=== PATIENT | male | born 1980 | race Caucasian/White ===

== ENCOUNTER 2017-02-09 19:17 | Inpatient (IN) | payer OTHER ==
[~2017-02-09] VITALS: Ht 190.5 cm; Wt 127.0 kg
[2017-02-09 21:30] VITALS: BP_SYST 137; BP_DIAS 37; BP_DIAS 87; PULSE 95; TEMP 36.6; O2SAT 96; Ht 190.5 cm; Wt 127.0 kg
[2017-02-09] MEDS ORDERED: HYDR25TA4 PO (22:16)
[2017-02-09] MEDS ORDERED: HYDR12.55 PO (22:16)
[2017-02-09] MEDS ORDERED: ENOXAPARIN 40 MG/0.4 ML SYR SC SCH (23:00)
[2017-02-09] MEDS ORDERED: FUROSEMIDE INJ 60 MG in SYRINGE 0 ML IV ONE (23:30)
--- NOTE | 2017-02-09 23:41 | History and Physical ---
History & Physical Date & Time of Service: Feb 09, 2017 at 23:16 Chief Complaint: Poss. Endocarditis Primary Care Physician: No Doctor, Assigned History of Present Illness Source: patient 36 year old male was a direct admit from [facility] [place] with chest pain and shortness of breath. He presented to their hospital with chest pain and shortness of breath. His chest pain started in the morning when he woke up. He described it as a central , crushing chest pain that is made worse with deep inspiration, but is not worse with exertion and does not radiate. Morphine helped with the pain. Before it was a 9/10 but now he rates it as a 4/10. Associated symptoms include shortness of breath (chronic since May but worse recently, worse when laying flat and when exerting himself), palpitations , and morning cough with clear sputum. Of note he has also lost 150-200 pounds over the last 9-10 months which has been unintentional. At [facility] on [facility] he was found to have moderate bilateral pleural effusions as well as a LLL infiltrate. His troponin was .064 and his EKG showed NSR. He received Ativan, lopressor, vanc, levaquin and lorazepam at the outside ED. His tox screen at the outside hospital was positive for THC (admits to smoking pot), Oxycodone (admits to taking one yesterday) and cocaine (patient denies any cocaine use). He was afebrile and without a WCC at the outside hospital. 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)) Allergies Coded Allergies: Penicillins (Verified Allergy, Severe, ANAPHYLAXIS, 02/09/17) Home Medications Scheduled Hydrochlorothiazide (Hydrochlorothiazide), 1 TAB PO DAILY Hydrochlorothiazide (Hctz), 1 TAB PO DAILY Review of Systems Constitutional: + weight loss, No fever, No chills, No sweats ENT: No nasal symptoms, No sore throat Respiratory: + cough, + sputum (clear), + shortness of breath, + dyspnea on exertion, + dyspnea at rest, No hemoptysis Cardiovascular: + chest pain, + palpitations Abdomen: No pain, No nausea, No vomiting, No diarrhea Musculoskeletal: + joint pain (left knee), No muscle pain, No swelling, No calf pain Genitourinary - Male: No hematuria, No dysuria Neurologic: No paralysis, No weakness, No numbness/tingling Psychiatric: + substance abuse, No anxiety Hematologic / Lymphatic: No abnormal bleeding/bruising, No clotting problems Integumentary: No rash, No itch, No new/changing skin lesions Physical Exam Vital Signs Date Time Temp Pulse Resp B/P (MAP) Pulse Ox O2 Delivery O2 Flow Rate FiO2 02/09/17 21:30 36.6 95 32 137/37 96 Mask 3.0 General Appearance: WD/WN, no apparent distress, + obese, + pertinent finding ( oxy mask on) Head: normocephalic, atraumatic Eyes: PERRL, EOMI, funduscopic exam normal ENT: hearing grossly normal, pharynx normal Neck: supple, no carotid bruits, trachea midline, + pertinent finding (unable to assess JVD due to obesity) Respiratory/Chest: chest non-tender, no respiratory distress, no accessory muscle use, + crackles (crackles at the bases bilaterally) Cardiovascular: regular rate, rhythm, no edema, no murmur, normal peripheral pulses Abdomen/GI: normal bowel sounds, non tender, soft Extremities/Musculoskelatal: no calf tenderness, no pedal edema, normal range of motion, non-tender Neurologic/Psych: alert, normal mood/affect, oriented x 3 Skin: + pertinent finding (tattoos throughout his body) Impression Assessment and Plan 36 year old male as a direct admit from [facility] who presented with chest pain and shortness of breath and was found to have bilateral pleural effusions with a LLL infiltrate on imaging. Differential for this patient includes myocarditis, pericarditis, cardiomyopathy , KRISTI, endocarditis, valvular abnormality, MA, Pneumonia Shortness of breath/Chest pain - Ct scan showed moderate bilateral pleural effusions w/ LLL infiltrate and without PE - Patient on 3L oxy mask - Will give 60 IV lasix and reassess with CXR in AM - Initial EKG at outside hospital in NSR - Troponin at outside hospital .064, will repeat this evening and another one in 8 hours - Order Echo for the morning and order EKG for the morning - Strict I/O's - Cardiology consult - Patient afebrile and without wcc at outside hospital therefore will hold off on giving antibiotics - Morphine 2mg q2 prn chest pain Unintentional Weight loss - 150-200 pounds over 9 months. - TSH ordered, HbA1c ordered - Possible malignancy workup? HTN - continue HCTZ - follow bmp DVT prophylaxis - lovenox FULL CODE Resident Physician Supervision Note: I was present with Dr. Jacobo during the history and exam. I discussed the case with the resident and agree with the findings and plan as documented in the note. Any exceptions or clarifications are listed here: 36 y/o M Hx IVDU > 5 yrs ago , recreational cocaine use, smoker, obesity. Has had SOB for a few months then developed acute worsening and CP earlier today - presented to [facility] where he was transferred to [facility]. Initial imaging and exam is consistent with CHF - troponin has been WNL. CT is negative for PEs. OE AAO x 3 - labored breathing is apparent S1,2 R Reduced air entry at bases NT, ND No CCE P: Pt will be diuresed and we will repeat imaging AM - if effusions do not decrease would merit tap Echo and cardio consult are pending Serial trops ordered Reg weight loss - states that loss is not intentional however he also states that he has had no appetite for past 6 several months - 200 lbs is excessive and wowuld need further workup following workup of acute issues Discussed drug use and smoking cessation - states he has not used Cocaine in 6 months although this is unlikely as his UDS is + Documented By: Kristopher Myers Level of Care Telemetry Advanced Directives Existing Living Will: No Existing Power of Adjunct Faculty Instructor: No Resuscitation Status FULL RESUSCITATION VTE Prophylaxis VTE Risk Assessment Done? Y/N: Yes Risk Level: Moderate Given or contraindicated: Enoxaparin (Lovenox)SQ
[2017-02-10] VITALS (8 sets, daily range): BP systolic 101–174; BP diastolic 65–123; PULSE 80–96; TEMP 36.4–36.8; O2SAT 94–98
[2017-02-10] MEDS ORDERED: PNEUMOCOCCAL ADMINISTRATION CHARGE ONE (00:30)
[2017-02-10] MEDS ORDERED: PNEUMOCOCCAL POLYSACCHARIDES 25 MCG/0.5 ML VIAL/SYR IM. ONE (00:30)
[2017-02-10] MEDS: MoRPHine SULFATE 2 MG/ML CARP IV PRN ×2 (02:11→08:35)
[2017-02-10 05:55] LABS: BASO % 0.5 %; BASO ABS # 0.05 K/uL (0-0.2); COMPLETE YES; EOS % 1.3 %; HEMATOCRIT 50.7 % (42-52); IG% 0.2 %; LYMPH ABS # 1.58 K/uL (1.2-3.4); MEAN CELL VOLUME 90.4 fL (80-100); MEAN CORPUSCULAR HEMOGLOBIN 29.8 pg (25-34); MEAN CORPUSCULAR HGB CONC 32.9 g/dl (32-36); MEAN PLATELET VOLUME 10.5 fL (7.4-10.4); MONO % 8.6 %; NEUT % 73.4 %; PLATELET COUNT 229 K/uL (130-400); RED BLOOD COUNT 5.61 M/uL (4.7-6.1); WHITE BLOOD COUNT 9.89 K/uL (4.8-10.8)
[2017-02-10 06:08] LABS: INR 1.1 (0.9-1.1); PARTIAL THROMBOPLASTIN RATIO 1.1; PROTHROMBIN TIME (PATIENT) 12.3 SECONDS (9.0-12.0)
[2017-02-10 06:25] LABS: CALCIUM 8.9 mg/dl (8.5-10.1); CREATININE 1.2 mg/dl (0.60-1.40); POTASSIUM 4.8 mmol/L (3.5-5.1)
[2017-02-10 06:26] LABS: BUN/CREATININE RATIO 16.3 (10-20); CALCIUM 8.6 mg/dl (8.5-10.1); POTASSIUM 4.8 mmol/L (3.5-5.1)
[2017-02-10 06:36] LABS: ALB/GLOB RATIO 0.7 (0.9-2); CHOLESTEROL/HDL RATIO 3.2; THYROID STIMULATING HORMONE 1.16 uIu/ml (0.300-4.500)
[2017-02-10 07:12] LABS: ESTIMATED AVERAGE GLUCOSE 137 mg/dl; HA1C FLAG Normal (Normal)
--- NOTE | 2017-02-10 08:46 | Family Medicine Progress Note ---
Progress Note Date of Service Feb 10, 2017. Subjective Pt evaluation today including: conversation w/ patient SEE DISCHARGE NOTE Objective Vital Signs Date Time Temp Pulse Resp B/P (MAP) Pulse Ox O2 Delivery O2 Flow Rate FiO2 02/10/17 08:19 36.8 96 18 139/68 (91) 98 02/10/17 04:29 36.4 95 24 125/84 (98) 98 Oxymask 3.0 02/10/17 04:00 Oxymask 3.0 02/10/17 01:15 92 28 121/84 (96) 98 Oxymask 3.0 02/10/17 00:00 96 Oxymask 3.0 02/10/17 00:00 36.8 92 21 174/123 (140) 96 Nasal Cannula 3.0 Oxymask 02/09/17 21:30 36.6 95 32 137/87 96 Mask 3.0 Resident Tracking Resident Involvement: Resident Care Provided Care Provided: Adult Hospital Medicine History Resident Physician Supervision Note: I was present with Dr. Marcus during the history and exam. I discussed the case with the resident and agree with the findings and plan as documented in the note. Any exceptions or clarifications are listed here. Pt seen and examined at bedside. Persistent shortness of breath at rest worse with lying flat or exertion. Some nonproductive cough improved from foamy white previous. Significant increase in UOP on diuretics. reports no fever, sweats, sensory changes, KIRAN, chest pain. General Appearance: mild distress, obese Respiratory: chest non-tender, decreased breath sounds, rales (b/l LL) Cardiovascular: normal peripheral pulses, regular rate, rhythm, no murmur, other (2+ pitting edema b/l LE) Assessment/Plan 36 y/o male h/o NICM, cocaine abuse, CHF (systolic) p/w worsening SOB CHF exacerbation - echocardiogram shows considerable EF drop - metoprolol, lasix BID. Will add ARIE-I soon. Significant weight loss - unknown connection to cardiac deficits - SPEP, UPEP, hepatitis profile, HIV Cocaine use - counseled briefly re: avoidance of substance use, as has polysubstance abuse hx including etOH and marijuana Shortly after rounds today, the patient stated he was going to leave the hospital, citing that he had to check on his house and dog, and that his S/O was coming to get him. He held to this plan despite counseling from the entire medical team including myself. He has good understanding of the consequences that may await him if he leaves, including worsening SOB, syncope and sudden cardiac . He is going to leave in any case. He says that he will present to [place] ED as soon as he completes the tasks that he wishes to complete.
[2017-02-10] MEDS ORDERED: FUROSEMIDE INJ 20 MG in SYRINGE 0 ML IV SCH (09:00)
[2017-02-10] MEDS ORDERED: POTASSIUM CHLORIDE 10 MEQ TABCR PO SCH (09:00)
[2017-02-10] MEDS ORDERED: HYDROCHLOROTHIAZIDE 25 MG TAB PO SCH (09:00)
--- NOTE | 2017-02-10 09:23 | DIAGNOSTIC IMAGING REPORT ---
CHEST 2 VIEWS ROUTINE CLINICAL HISTORY: Shortness of breath COMPARISON STUDY: Outside chest x-ray dated 02/09/2017 FINDINGS: The heart remains enlarged. There are bilateral pleural effusions with bibasal airspace opacities likely atelectatic. Elevation interstitium, likely is secondary to mild pulmonary edema. IMPRESSION: Persistent cardiomegaly, pulmonary vascular congestion, bilateral pleural effusions, and bibasal atelectasis. Electronically signed by: Zelalem Herrera M.D. 02/10/2017 9:22 AM Dictated Date/Time: 02/10/2017 9:20 AM
--- NOTE | 2017-02-10 09:52 | ECHOCARDIOGRAM REPORT ---
*NOTICE TO RECEIVING DEMOCRAT AGENCY This information is strictly Confidential and protected under [place] law. [place] law prohibits you from making any further disclosure of this information unless further disclosure is expressly permitted by the written consent of the person to whom it pertains or is authorized by law. A general authorization for the release of medical or other information is not sufficient for this purpose. Hospital accepts no responsibility if the information is made available to any other person, INCLUDING THE PATIENT. Interpretation Summary * Name: BOB MORENO Study Date: 02/10/2017 06:31 AM BP: 125/84 mmHg * Patient Location: C.2T\S\S240\S\1 HR: 95 * : 1980 (M/d/yyyy) Gender: Male Height: 75 in * Age: 36 yrs Ethnicity: AL Weight: 277 lb * Ordering Physician: Max Zapata * Referring Physician: No Doctor, Assigned * Performed By: Adalid Donahue RCS * * Reason For Study: CHF * BSA: 2.5 m2 * -- Conclusions -- * The left ventricle is moderately dilated. LVEDVI for BSA 87 cc * There is normal left ventricular wall thickness. * Left ventricular systolic function is severely reduced. * Ejection Fraction = 20-25%. * There is severe global hypokinesis of the left ventricle. * LV stroke volume 50 cc. * Dilated RV with reduced RV function. * The left atrium is severely dilated. * Mild aortic regurgitation. * There is mild to moderate mitral regurgitation. * PA pressure 50 mm/hg * Small pericardial effusion. * Moderate size left pleural effusion * . * Diastolic dysfunction, Grade III (restrictive pattern), consistent with markedly increased left atrial pressure. * There is moderate tricuspid regurgitation. * No obvious vegetations visualized. Procedure Details * A complete two-dimensional transthoracic echocardiogram was performed (2D, M-mode, Doppler and color flow Doppler). Left Ventricle * The left ventricle is moderately dilated. * There is normal left ventricular wall thickness. * Ejection Fraction = 20-25%. * Left ventricular systolic function is severely reduced. * There is severe global hypokinesis of the left ventricle. * LV stroke volume 50 cc. Right Ventricle * Dilated RV with reduced RV function. Atria * The left atrium is severely dilated. * The right atrium is moderately dilated. Mitral Valve * The mitral valve is grossly normal. * There is mild to moderate mitral regurgitation. Tricuspid Valve * The tricuspid valve is not well visualized, but is grossly normal. * There is moderate tricuspid regurgitation. * PA pressure 50 mm/hg Aortic Valve * The aortic valve is trileaflet. * Mild aortic regurgitation. Pulmonic Valve * The pulmonic valve is not well seen, but is grossly normal. * Mild pulmonic valvular regurgitation. Great Vessels * The aortic root is normal size. Pericardium/Pleural * Small pericardial effusion. * Moderate size left pleural effusion. Great Vessels * Dilated inferior vena cava with reduced collapsability with sniff indicates an elevated right atrial pressure of 15 mmHg Left Ventricular Diastolic Function * Diastolic dysfunction, Grade III (restrictive pattern), consistent with markedly increased left atrial pressure. MMode 2D Measurements and Calculations IVSd 1.1 cm IVSs 1.5 cm LVIDd 6.1 cm LVIDs 5.2 cm LVPWd 1.1 cm LVPWs 1.5 cm IVS/LVPW 1.0 FS 14.3 % EDV(Teich) 184.7 ml ESV(Teich) 129.6 ml EF(Teich) 29.8 % EDV(cubed) 223.4 ml ESV(cubed) 140.8 ml EF(cubed) 37.0 % % IVS thick 33.4 % % LVPW thick 37.9 % LV mass(C)d 283.1 grams LV mass(C)dI 112.3 grams/m\S\2 LV mass(C)s 337.3 grams LV mass(C)sI 133.8 grams/m\S\2 SV(Teich) 55.1 ml SI(Teich) 21.8 ml/m\S\2 SV(cubed) 82.6 ml SI(cubed) 32.8 ml/m\S\2 Ao root diam 3.8 cm Ao root area 11.1 cm\S\2 ACS 2.1 cm LA dimension 5.5 cm asc Aorta Diam 3.9 cm LA/Ao 1.5 LVAd ap4 57.1 cm\S\2 LVLd ap4 10.9 cm EDV(MOD-sp4) 241.3 ml EDV(sp4-el) 254.1 ml LVAs ap4 50.4 cm\S\2 LVLs ap4 10.2 cm ESV(MOD-sp4) 205.9 ml ESV(sp4-el) 210.6 ml EF(MOD-sp4) 14.7 % EF(sp4-el) 17.1 % LVAd ap2 71.7 cm\S\2 LVLd ap2 11.3 cm EDV(MOD-sp2) 372.9 ml EDV(sp2-el) 387.1 ml LVAs ap2 59.0 cm\S\2 LVLs ap2 10.2 cm ESV(MOD-sp2) 279.9 ml ESV(sp2-el) 290.7 ml EF(MOD-sp2) 24.9 % EF(sp2-el) 24.9 % LVLd %diff 3.4 % EDV(MOD-bp) 299.5 ml LVLs %diff -0.77 % ESV(MOD-bp) 242.2 ml EF(MOD-bp) 19.1 % SV(MOD-sp4) 35.4 ml SI(MOD-sp4) 14.1 ml/m\S\2 SV(MOD-sp2) 93.0 ml SI(MOD-sp2) 36.9 ml/m\S\2 SV(MOD-bp) 57.3 ml SI(MOD-bp) 22.7 ml/m\S\2 SV(sp4-el) 43.5 ml SI(sp4-el) 17.3 ml/m\S\2 SV(sp2-el) 96.4 ml SI(sp2-el) 38.3 ml/m\S\2 Doppler Measurements and Calculations MV E max gordo 89.7 cm/sec MV A max gordo 43.6 cm/sec MV E/A 2.1 MV P1/2t max gordo 97.5 cm/sec MV P1/2t 68.1 msec MVA(P1/2t) 3.2 cm\S\2 MV dec slope 419.3 cm/sec\S\2 MV dec time 0.15 sec Ao V2 max 79.8 cm/sec Ao max PG 2.5 mmHg Ao max PG (full) 1.3 mmHg AI max gordo 374.0 cm/sec AI max PG 56.0 mmHg AI dec slope 111.8 cm/sec\S\2 AI P1/2t 979.7 msec LV V1 max PG 1.2 mmHg LV V1 max 55.6 cm/sec PA V2 max 65.0 cm/sec PA max PG 1.7 mmHg TR max gordo 285.8 cm/sec
--- NOTE | 2017-02-10 11:23 | CARDIOLOGY CONSULTATION ---
DATE OF CONSULTATION: 02/10/2017 DATE OF CONSULTATION: 02/10/2017 REQUESTING: Dr. Max Zapata. DISPATCH ASSOCIATE: Jose Boston D.O., [facility]. REASON FOR CONSULTATION: Acute systolic heart failure. Dear Dr. Zapata: Thank you for requesting cardiology consultation on Deangelo with regards to his presentation of acute systolic heart failure. As you know, he is a 36-year-old gentleman who describes cocaine abuse approximately 5 years ago but denies it currently even though his urine drug screen was positive. He does note that he smokes marijuana and notes that he used narcotics yesterday. He describes in the past he denies the use of heroin. He denies IV drug abuse at any point in the past. He describes a significant weight loss of over 150 pounds in the last 9-10 months. He describes over the last 6 months or so he has had progressive shortness of breath with activity. He describes 2 pillow orthopnea. He describes lower extremity edema which was pitting. He describes increased abdominal distention and fullness of his abdomen. Yesterday he had chest tightness and chest pressure that was worse with a deep breath and worse lying flat. He went to the Emergency Room at [facility] where he was found to have a moderate bilateral pleural effusions by CT scan and a concern for infection and was transferred to [facility]. He was given 60 mg of Lasix in the Emergency Room and was given 20 mg of IV Lasix this morning and he notes with that he has had a good diuresis, his chest tightness has resolved. His lower extremity edema is improving. His abdominal distention is improving. He denies any lightheadedness, dizziness, presyncope, syncope. Denies any palpitations, fluttering, skips or feeling his heart racing. He notes he has an appetite this morning and wants to eat. Denies any fevers, chills, sweats, cough, productive sputum, myalgias or arthralgias. He does appear slightly anxious in discussing his medical conditions today. The rest of review of systems otherwise negative. PAST MEDICAL HISTORY: 1. Presumed nonischemic cardiomyopathy with severe left ventricular dysfunction with an EF in the range of 20-25%. 2. Acute systolic heart failure. 3. Hypertension. 4. Obesity. 5. History of cocaine and marijuana use and oxycodone yesterday. FAMILY HISTORY: Dad had a pacemaker 33. Mother has several medical problems, but he denies that she has any heart disease. SOCIAL HISTORY: He is smoking cigarettes a small amount every day. 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 He lives with his mom. ALLERGIES: PENICILLIN. OUTPATIENT MEDICATIONS: Hydrochlorothiazide. PHYSICAL EXAMINATION: GENERAL: He is awake, alert, oriented x3. He looks older than his stated age. VITAL SIGNS: His heart rate is 96, respirations 18, blood pressure 139/68, his pulse ox is 98% on OxyMask at 3 liters. HEAD, EYES, EARS, NOSE, AND THROAT: Severely reduced carotid upstrokes. No evidence of carotid bruits. Jugular venous pressure could not be assessed due to his neck size. Sclerae is anicteric. His hearing is normal. LUNGS: Decreased breath sounds in the bases bilaterally. No rales, rhonchi or wheezing. HEART: Regular rate and rhythm. No appreciable murmurs, rubs or gallops. There is an RV lift. ABDOMEN: Soft, nontender, nondistended, positive bowel sounds. EXTREMITIES: No clubbing, cyanosis or edema. PSYCHIATRIC: His affect appeared appropriate. NEUROLOGIC: Awake, alert and oriented x3. His echocardiogram this morning severe left ventricular dysfunction, EF in the range of 20-25% with severe global hypokinesis. His LV stroke volume was 50 mL. He has a dilated right ventricle with reduced RV function. He has moderate pulmonary hypertension, small pericardial effusion, moderate size left pleural effusion with type 3 diastolic dysfunction. LABORATORY STUDIES: Sodium 139, potassium 4.8, his BUN is 19, creatinine 1.2. His troponin is 0.066. TSH was normal, LDL 68, HDL 37, AST and ALT were normal. Hemoglobin 16.7, platelet count 229. EKG sinus rhythm, biatrial enlargement, left ventricular hypertrophy, nonspecific T-wave changes, prolonged QT PVCs. IMPRESSIONS: 1. Severe nonischemic cardiomyopathy, likely related to prior cocaine abuse. 2. Acute systolic heart failure. 3. Unexplained 150 pound weight loss. 4. Type 3 diastolic dysfunction. 5. Moderate bilateral pleural effusions. RECOMMENDATIONS: I made the following recommendations: 1. Add Toprol-XL 12.5 grams daily to his medical regimen with the idea of adding ARIE inhibitor therapy. 2. I would continue with the diuresis 20 mg of Lasix IV b.i.d. He has had good diuresis so far as he is negative over 3 liters since admission. 3. His TSH is normal. I would check an SPEP and UPEP to rule out multiple myeloma. I would check iron studies as well as HIV and hepatitis profile, given his prior drug abuse. 4. He needs heart failure education, which I did this morning and nutrition evaluation. We discussed daily weights, low salt diet and he should adhere to a 2000 mg sodium diet. I would up titrate his heart failure medications as his blood pressure allows. He likely will live with a blood pressure in the mid to high 90s without being lightheaded or dizzy. All this was discussed with the primary service. Thank you for allowing us to participate in his care.
[2017-02-10] MEDS ORDERED: ENOXAPARIN 40 MG/0.4 ML SYR SQ SCH (12:00)
[2017-02-10] MEDS ORDERED: METOPROLOL SUCC 25MG EXT REL TAB PO ONE (12:15)
[2017-02-10 13:41] LABS: BUN/CREATININE RATIO 14.8 (10-20); CALCIUM 9.9 mg/dl (8.5-10.1); CREATININE 1.4 mg/dl (0.60-1.40); MAGNESIUM 2.3 mg/dl (1.8-2.4); POTASSIUM 4.5 mmol/L (3.5-5.1)
[2017-02-10 15:42] LABS: BUN/CREATININE RATIO 15.7 (10-20); CALCIUM 9.4 mg/dl (8.5-10.1); CREATININE 1.5 mg/dl (0.60-1.40); POTASSIUM 4.5 mmol/L (3.5-5.1)
--- NOTE | 2017-02-11 04:51 | Discharge Instructions ---
Discharge Instructions Date of Service Feb 11, 2017. Admission Reason for Admission: Poss. Endocarditis Discharge Discharge Diagnosis / Problem: Severe CHF Discharge Goals Goal(s): Decrease discomfort, Improve function, Improve disease control, Therapeutic intervention Activity Recommendations Activity Limitations: resume your previous activity . Instructions / Follow-Up Instructions / Follow-Up Please seek medical attention for ongoing/worsening symptoms Current Hospital Diet Patient's current hospital diet: AHA Diet (Heart Healthy), Low Sodium Diet (2gm Na) Discharge Diet Recommended Diet: AHA Diet (Heart Healthy), Low Sodium Diet (2gm Na) Fluid Restriction: 1500 ml (6 cups) Pending Studies Studies pending at discharge: yes List of pending studies: Hep panel Laboratory Results Hemoglobin A1c Test 02/10/17 05:18 Range/Units Estimated Average Glucose 137 mg/dl Hemoglobin A1c 6.4 H 4.5-5.6 % Lipid Panel Test 02/10/17 05:18 Range/Units Triglycerides Level 75 0-150 mg/dl Cholesterol Level 120 0-200 mg/dl HDL Cholesterol 37 mg/dl Cholesterol/HDL Ratio 3.2 LDL Cholesterol, Calculated 68 mg/dl Medical Emergencies . Who to Call and When: Medical Emergencies: If at any time you feel your situation is an emergency, please call 911 immediately. . Non-Emergent Contact Non-Emergency issues call your: Primary Care Provider, Assistant County Engineer . . "Provider Documentation" section prepared by Collette Marcus. . VTE Core Measure Inpt VTE Proph given/why not?: Enoxaparin (Lovenox)SQ Resident Tracking Resident Involvement: Resident Care Provided Care Provided: Adult Hospital Medicine
--- NOTE | 2017-02-11 05:21 | Discharge Summary ---
Discharge Summary Date of Service Feb 10, 2017. Discharge Summary Admission Date: Feb 09, 2017 at 21:18 Discharge Date: Feb 10, 2017 Discharge Disposition: Home Principal Diagnosis: Severe CHF Discharge Exam Patient reports that he is feeling better since arriving in hospital. He is no longer experiencing chest pain. Although he denies dyspnea, he is currently still using 3L via oxy mask and does pant when holding a conversation. He states his SOB is worse with exertion and he has had orthopnea and PND for >6 months now. He also has had a chronic dry cough. The medication he has received has been resultant in significant volumes of urination. He denies fevers/chills , headaches, palpitations, nausea, diaphoresis, abdominal pain, calf pain. ROS unremarkable except as noted above. Physical Exam: General Appearance: WD/WN, + mild distress Eyes: normal inspection ENT: hearing grossly normal Neck: supple, no adenopathy Respiratory/Chest: no accessory muscle use, + respiratory distress, + decreased breath sounds (bibasilar), + crackles, + rales Cardiovascular: regular rate, rhythm, no murmur, normal peripheral pulses Abdomen / GI: normal bowel sounds, non tender, soft Extremities: no calf tenderness, normal capillary refill, + pedal edema Neurologic/Psychiatric: alert, normal mood/affect, oriented x 3 Skin: normal color, warm/dry, no rash Hospital Course 36 year old male with h/o cocaine and marijuana abuse and CM and systolic CHF admitted with chest pain and dyspnea CHF exacerbation - Oxygen via oxymask per protocol - currently on 3L - Initial EKG at outside hospital in [place] - CT scan for PE negative but scan showed cardiomegaly, moderate bilateral pleural effusions - S/p IV Lasix 60mg and then IV Lasix 20mg BID + metoprolol - Troponin at outside hospital .064, second set elevated but trending down - Echo showed Moderate LV dilated, with severely reduced systolic function (EF = 20-25%) + dilated RV with reduced RV function Diastolic dysfunction, Grade III (restrictive pattern), consistent with markedly increased left atrial pressure. LA severely dilated Mild aortic regurgitation, mild to moderate mitral regurgitation, moderate tricuspid regurgitation. Small pericardial effusion. - Strict I/O's, salt and fluid restriction, daily weights - Morphine 2mg q2 PRN chest pain - Cardiology recs appreciated. HTN - Discontinue HCTZ. Start metoprolol 12.5mg daily. Consider addition of ACEi if pressures tolerate - Trend bmp Unintentional Weight loss - 150-200 pounds over 9 months. - TSH normal, HbA1c pending - HIV, hepatitis A, B, C panel ordered in view of IVDA - SPEP, UPEP IVDA history - Counseled on harms of substance use/abuse. Patient admits to marijuana use, but no cocaine use anymore DVT prophylaxis - Lovenox FULL CODE Called to see patient who had decided to leave hospital AMA. Stated that his mother had fallen and was being taken to [facility] and he needed to check on the house and his dog. He had already arranged for his ride. Risks were discussed including worsening dyspnea, recurrence of chest pain, fainting/falling, cardiac arrhythmia, LA, sudden cardiac . Patient stated understanding, and despite hiv counselor from nursing staff, myself and Dr. Ruiz, patient refused to stay in hospital for optimization of condition. He states that he will present to [facility] ED at a later time. Total Time Spent: Less than 30 minutes This includes examination of the patient, discharge planning, medication reconciliation, and communication with other providers. Discharge Instructions Please refer to the electronic Patient Visit Report (Discharge Instructions) for additional information. Resident Tracking Resident Involvement: Resident Care Provided Care Provided: Adult Hospital Medicine
[2017-02-11] MEDS ORDERED: METOPROLOL SUCC 25MG EXT REL TAB PO SCH (09:00)
== END 2017-02-10 16:22 | disposition left against medical advice (07) | DRG 293 ==
LOC: C.2T 21:18
PROVIDERS: ADMIT Internal Medicine; ATTEND Family Medicine
DX: I11.0 Hypertensive heart disease with heart failure (principal); I50.21 Acute systolic (congestive) heart failure; I42.9 Cardiomyopathy, unspecified; I50.1 Left ventricular failure, unspecified; F17.210 Nicotine dependence, cigarettes, uncomplicated; F10.10 Alcohol abuse, uncomplicated; F12.10 Cannabis abuse, uncomplicated; F14.90 Cocaine use, unspecified, uncomplicated; F11.90 Opioid use, unspecified, uncomplicated; R63.4 Abnormal weight loss; E66.9 Obesity, unspecified; Z68.35 Body mass index [BMI] 35.0-35.9, adult; Z53.21 Procedure and treatment not carried out due to patient leaving prior to being seen by health care provider; Z82.49 Family history of ischemic heart disease and other diseases of the circulatory system; Z79.899 Other long term (current) drug therapy